=== PATIENT | female | born 1975 | race African-American/Black ===

== ENCOUNTER 2017-11-01 21:03 | Emergency (ER) | payer MEDICAID ==
[~2017-11-01] VITALS: Ht 162.6 cm; Wt 75.8 kg
[2017-11-01 21:08] VITALS: BP 107/75
[2017-11-01] MEDS ORDERED: DIPHENHYDRAMINE 50 MG CAPSULE PO STA (21:49)
[2017-11-01] MEDS ORDERED: FAMOTIDINE 20 MG TABLET ONE (21:55)
[2017-11-01] MEDS ORDERED: DIPHENHYDRAMINE 25 MG CAPSULE ONE (21:55)
[2017-11-01] MEDS ORDERED: FAMOTIDINE 20 MG TABLET PO ONE (22:00)
== END 2017-11-01 23:11 | disposition home or self-care (01) ==
LOC: ED 22:13
DX: S00.12XA Contusion of left eyelid and periocular area, initial encounter (principal); B86 Scabies; E78.5 Hyperlipidemia, unspecified; I10 Essential (primary) hypertension; Y04.8XXA Assault by other bodily force, initial encounter; Y93.89 Activity, other specified; Y99.8 Other external cause status; Y92.89 Other specified places as the place of occurrence of the external cause
CPT/HCPCS: 70486; 99284